=== PATIENT | male | born 1995 | race Caucasian/White ===

== ENCOUNTER → 2021-06-27 | Outpatient (CLI) | payer BC ==
[2021-06-27 10:31] LABS: POTASSIUM 4.3 mmol/L (3.5-5.1)
[2021-06-27 10:32] LABS: CALCIUM 9.5 mg/dL (8.3-10.5)
== END ==
LOC: LAB 09:25
PROVIDERS: Surgery
DX: Z00.00 Encounter for general adult medical examination without abnormal findings (principal); I10 Essential (primary) hypertension

== ENCOUNTER 2022-03-17 22:23 | Emergency (ER) | payer BC ==
[~2022-03-17] VITALS: Ht 177.8 cm; Wt 109.1 kg
[2022-03-17 22:29] VITALS: BP 157/101
[2022-03-17] MEDS ORDERED: CEPHALEXIN500 M2 PO (23:00)
== END 2022-03-17 23:03 | disposition home or self-care (01) ==
LOC: ED 22:23
DX: S61.213A Laceration without foreign body of left middle finger without damage to nail, initial encounter (principal); W27.8XXA Contact with other nonpowered hand tool, initial encounter